=== PATIENT | male | born 1980 | race Caucasian/White ===

== ENCOUNTER 2023-01-04 06:03 | Day surgery (SDC) | payer OTHER ==
[2023-01-04] MEDS ORDERED: NEXIUM 24HR20 M1 PO (09:22)
== END 2023-01-04 10:55 | disposition home or self-care (01) ==
LOC: AMB-ENDOS 06:03
PROVIDERS: ATTEND Surgery
DX: K29.50 Unspecified chronic gastritis without bleeding (principal); R10.13 Epigastric pain; E66.09 Other obesity due to excess calories; K44.9 Diaphragmatic hernia without obstruction or gangrene; Z20.822 Contact with and (suspected) exposure to COVID-19